=== PATIENT | female | born 1975 | race Caucasian/White ===

== ENCOUNTER 2020-05-23 09:36 | Day surgery (SDC) | payer OTHER ==
[~2020-05-23] VITALS: Ht 167.6 cm; Wt 74.0 kg
[~2020-05-23 09:36] MED LIST: PREG150C46 PO; PREG225C7 PO; famotidine 20mg tablet PO ONE; meperidine/PF 25mg/ml syringe IV PRN; morphine 2 MG/ML inj. syringe IV PRN; morphine 4 MG/ML inj SYRINge IV PRN; ondansetron/PF 4mg/2ml inj IV PRN; proCHLORperazine 10 MG/2 ml inj IV PRN; ringers solution, lacted 1,000 ML IV SCH
[2020-05-23 09:45] VITALS: BP 136/85
[2020-05-23] MEDS ORDERED: ceFAZolin 2gm in dextrose, iso 100 ML IV ONE (10:15)
[2020-05-23 10:23] LABS: BASOPHILS # (AUTO) 0.1 X10'3 (0-0.2); BASOPHILS % (AUTO) 0.7 % (0-1); EOSINOPHILS # (AUTO) 0.1 X10'3 (0-0.9); LYMPHOCYTES # (AUTO) 2.3 X10'3 (1.1-4.8); LYMPHOCYTES % (AUTO) 23.6 % (21-51); MEAN CORPUSCULAR HEMOGLOBIN 32.4 PG (27.0-31.0); MEAN CORPUSCULAR VOLUME 95.4 FL (78-98); MEAN PLATELET VOLUME 9.3 FL (7.4-10.4); MONOCYTES # (AUTO) 0.7 X10'3 (0-0.9); MONOCYTES % (AUTO) 7.4 % (2-12); NEUTROPHILS # (AUTO) 6.6 X10'3 (1.8-7.7); NEUTROPHILS % (AUTO) 67.3 % (42-75); PRE OP HEMATOCRIT 41.8 % (35.0-45.0); PRE OP HEMOGLOBIN 14.2 g/dL (12.0-16.0); PRE OP PLATELET COUNT 280 X10'3 (140-440); RED BLOOD COUNT 4.39 X10'6 (4.20-5.60); RED CELL DISTRIBUTION WIDTH 13.2 % (11.5-14.5)
[2020-05-23 10:32] LABS: CLARITY,URINE SLIGHTLY CLOUDY (Clear); COLOR,URINE YELLOW (Yellow); GLUCOSE, URINE NEGATIVE (Neg); KETONES,URINE NEGATIVE (Neg); LEUKOCYTE ESTERASE ,URINE TRACE (Neg); NITRITES, URINE NEGATIVE (Neg); OCCULT BLOOD,URINE MODERATE (Neg); PROTEIN,URINE NEGATIVE (Neg); UROBILINOGEN,URINE 0.2 E.U/dL (0.2-1.0)
[2020-05-23 10:38] LABS: UA COLLECTION TYPE CLN CATCH MIDSTREAM
[2020-05-23 10:42] LABS: SQUAMOUS EPITHELIAL CELL,UR MODERATE /LPF (FEW)
[2020-05-23 10:43] LABS: BACTERIA,URINE FEW /HPF (Neg)
[2020-05-23 10:45] LABS: WBC,URINE 0-4 /HPF (0-4)
[2020-05-23 10:49] LABS: ALBUMIN 4.6 G/DL (3.4-5.0); ALBUMIN/GLOBULIN RATIO 1.1 (1.1-1.5); ALKALINE PHOSPHATASE 57 IU/L (46-116); BLOOD UREA NITROGEN 14 MG/DL (7-18); BUN/CREATININE RATIO 20.3 (6.6-38.0); CHLORIDE 104 MMOL/L (99-107); CREATININE 0.69 MG/DL (0.40-0.90); PRE OP ALT 16 U/L (30-65); PRE OP ANION GAP 9 (8-16); PRE OP AST 15 U/L (10-37); PRE OP BILIRUB, TOTAL 0.3 MG/DL (0.0-1.0); PRE OP GLUCOSE 102 MG/DL (70-104); PRE OP POTASSIUM 3.5 MMOL/L (3.4-5.1); PRE OP SODIUM 140 MMOL/L (135-145); TOTAL CARBON DIOXIDE 26.6 MMOL/L (24-32); TOTAL PROTEIN 8.7 G/DL (6.4-8.2); eGFR > 90 ML/MIN
[2020-05-23 12:04] LABS: HCG SERUM QL NEGATIVE
[2020-05-23] MEDS ORDERED: bacitracin 15gm ointment TP ONE (12:12)
[2020-05-23] MEDS ORDERED: rocuronium 10mg/ml inj IV ONE (12:32)
[2020-05-23] MEDS ORDERED: sevoflurane 250ml liquid IH ONE (12:32)
[2020-05-23] MEDS ORDERED: MIDAZolam 5mg/5ml vial ONE (12:48)
[2020-05-23] MEDS ORDERED: fentaNYL/PF 50MCG/1 ML 2ML syringe ONE ×2 (12:48→13:22)
--- NOTE | 2020-05-23 13:24 | NUR ---
Pt discharged to vehicle by wheelchair without incident. IV DC'd and all belongings returned to patient, she and her mother (on phone) verbalized understanding of all DC instructions. Boot still remains secured, no drainage from dressing. Pt states she has pain medicine in her vehicle that she picked up already. She continues to state her pain is tolerable at 2/10 and she would prefer not to take IV pain meds during recovery time and take a norco after she has eaten.
[2020-05-23 14:24] VITALS: BP 112/70
--- NOTE | 2020-05-23 14:24 | NUR ---
Received from OR via martina, accompanied by Anesthesiologist Papi and report given by Anesthesiolgist. VS stable, mask to 10L sats 100%. patient sleepy, right foot wrapped and already in boot. IVF LR at 100/hr.
[2020-05-23 14:30] VITALS: BP 114/65
[2020-05-23] MEDS ORDERED: LIDOcaine 1%/PF 5ML 10 MG/ML VIAL ONE (14:34)
[2020-05-23] MEDS ORDERED: ROPIVAcaine 0.5% (5mg/ml) 30ml vial ONE (14:34)
[2020-05-23] MEDS ORDERED: propofol inj 20 ML IV ONE (14:34)
[2020-05-23] MEDS ORDERED: ondansetron/PF 4mg/2ml inj ONE (14:34)
[2020-05-23] MEDS ORDERED: dexamethasone sod phosphate 4mg/ml inj. ONE (14:34)
[2020-05-23 14:40] VITALS: BP 110/67
[2020-05-23 14:50] VITALS: BP 122/70
== END 2020-05-23 13:24 | disposition home or self-care (01) ==
LOC: PAS 09:36
PROVIDERS: ATTEND Podiatrist Foot & Ankle Surgery
DX: G57.51 Tarsal tunnel syndrome, right lower limb (principal); M72.2 Plantar fascial fibromatosis; M79.89 Other specified soft tissue disorders; D36.13 Benign neoplasm of peripheral nerves and autonomic nervous system of lower limb, including hip; G89.18 Other acute postprocedural pain; Z79.899 Other long term (current) drug therapy; Z79.82 Long term (current) use of aspirin
CPT/HCPCS: 27632; 28035; 28039; 28060; 36415; 64447; 64450; 76942; 80053; 81001; 84703; 85025; 87088; A6223; J1100; J2250; J2405; J2704; J3010; J7120; A4215; A4618; A6449; A7000; J2795